=== PATIENT | male | born 1955 ===

== ENCOUNTER 2024-08-23 01:57 | Outpatient (CLI) | payer MEDICARE, BC, SELFPAY ==
--- NOTE | 2024-08-23 | DI.CT_ITS ---
Exam(s) CT ABDOMEN WO/W EXAM: CT ABDOMEN WO/W CLINICAL HISTORY: 1.3 CM mass on mri spine done for pain TECHNIQUE: Imaging Protocol: Axial computed tomography images with coronal and sagittal reformatted images were created and reviewed CONTRAST MATERIAL: Intravenous: Omnipaque 350 contrast volume:100 mL Oral: No COMPARISON: MR MRI LUMBAR SPINE WO CONTRAST (GENERIC) from 07/24/2024 FINDINGS: The examination is limited due to patient motion artifact. ABDOMEN: Lung Bases: Coronary artery calcifications are present. Liver: Normal density. There is a 1.6 cm mass in the left lobe of the liver. It shows nodular periph eral enhancement on the venous images and is completely opacified on the 15 minutes delayed images. The finding is consistent with a hemangioma. There is a 2nd similar appearing lesion in the dome of the liver measuring 1.1 cm (series 16, image 11). This is also consistent with a hepatic hemangioma. No suspicious hepatic lesions are seen. Portal, Superior Mesenteric, and Splenic Veins: Unremarkable. Gallbladder and Biliary Tract: No radiodense calculus or dilation. Pancreas: Normal density, no abnormal calcifications or inflammatory process. Spleen: Normal. Adrenals: There is a 1.4 cm nodule in the left adrenal gland. It is hypodense on the noncontrast exa mination. The absolute adrenal washout is 80 percent which is highly suggestive of an adrenal adenom a. Kidneys: Normal size, contour and axis. No radiodense stones or obstructive uropathy. No masses seen. Abdominal Aorta: Abdominal portion non-dilated. Atherosclerotic calcification is present. Bowel: No obstruction or bowel wall thickening. Peritoneal Cavity: No ascites, collection or mesenteric inflammatory response. No free air. Lymph Nodes: Within normal limits. Bones: There is a sclerotic focus seen in the posterior aspect of the right iliac bone and a 2nd scle rotic focus seen in the left sacral ala. Degenerative changes are seen in the lumbar spine particula rly at L4-5 and L5-S1. Soft Tissues: Unremarkable. IMPRESSION: 1. Findings most suggestive of an adrenal adenoma. No follow-up is recommended. 2. Two hepatic lesions which show peripheral enhancement on the venous phase and opacify completely o n the delayed images. These are most consistent with hepatic hemangiomas. 3. Two sclerotic foci seen in the pelvis. In the absence of history of metastatic disease these may r eflect bone islands. Please correlate clinically. If clinically indicated and whole-body bone scan ma y be obtained for further evaluation. Unexpected findings RADIATION DOSE DELIVERED: 646.61mGy.cm Total DLP DATA REPOSITORY: All CT scans at this facility are submitted to the National Radiology Data Registry (NRDR) Dose Index Registry (DIR) with the [employer] ([employer]). RADIATION OPTIMIZATION: All CT scans at this facility use at least one of these dose optimization te chniques: automated exposure control; mA and/or kV adjustment per patient size (includes targeted exa ms where dose is matched to clinical indication); or iterative reconstruction.
[2024-08-23 08:06] LABS: ALT 20 U/L (16-63); AST 17 U/L (15-37); Albumin 3.8 g/dL (3.4-5.0); Alkaline Phosphatase 81 U/L (46-116); Anion Gap 6.6 mmol/L (3-11); BUN 12 mg/dL (7-18); Bilirubin, Total 0.48 mg/dL (0.2-1.0); CO2 29.4 mmol/L (21.0-32.0); CREATININE 1.1 mg/dL (0.70-1.30); Calcium 9.4 mg/dL (8.5-10.1); Chloride 101 mmol/L (98-107); Estimated GFR 73.12 (mL/min/1.73m2); Glucose 117 mg/dL (74-106); Sodium 137 mmol/L (136-145); Total Protein 7.9 g/dL (6.4-8.2)
[2024-08-23] MEDS: Normal Saline - Diluent 50 ML VIAL IJ (08:20)
[2024-08-23] MEDS: Omnipaque 350 MG/ML 500 ML BTL-Imaging package 100 ML IJ (08:22)
== END 2024-08-23 02:17 ==
PROVIDERS: Visit Provider Family Medicine
DX: K76.0 Fatty (change of) liver, not elsewhere classified (principal)
CPT/HCPCS: 80053; 74170